=== PATIENT | female | born 1950 | race Caucasian/White ===

== ENCOUNTER 2023-03-11 20:57 | Inpatient (IN) | payer MEDICARE, OTHER ==
[~2023-03-11] VITALS: Ht 167.6 cm; Wt 56.2 kg
[2023-03-11] MEDS ORDERED: CHOL2000 PO (22:17)
[2023-03-11] MEDS ORDERED: estradiol cream VG (22:17)
[2023-03-11] MEDS ORDERED: ASCO500C18 PO (22:17)
[2023-03-11] MEDS ORDERED: BETH10TA2 PO (22:17)
[2023-03-11] MEDS ORDERED: THIA50TA10 PO (22:17)
[2023-03-11] MEDS ORDERED: MULT-594 PO (22:17)
[2023-03-11] MEDS ORDERED: FAMO-132 PO (22:17)
[2023-03-11] MEDS ORDERED: ACET-3117 PO (22:17)
[2023-03-11] MEDS ORDERED: NA P133E RC (22:17)
[2023-03-11] MEDS ORDERED: MAGN400O6 PO (22:17)
[2023-03-11] MEDS ORDERED: MELA3TAB41 PO (22:17)
[2023-03-11] MEDS ORDERED: FOLI1TAB94 PO (22:17)
[2023-03-11] MEDS ORDERED: MAGN400T30 PO (22:17)
[2023-03-11] MEDS ORDERED: CALC300T4 PO (22:17)
[2023-03-11] MEDS ORDERED: METH1TAB PO (22:17)
[2023-03-11 22:54] LABS: CARBON DIOXIDE 24 mmol/L (21-32); CHLORIDE 100 mmol/L (98-107); CREATININE 0.6 mg/dL (0.6-1.3); GLUCOSE 113 mg/dL (74-106); POTASSIUM 3.5 mmol/L (3.5-5.1); SODIUM SERUM 134 mmol/L (136-145); UREA NITROGEN, BLOOD 17 mg/dL (7-18)
[2023-03-11 22:55] LABS: BASOPHILS # (AUTO) 0.1 K/UL (0.0-0.2); EOSINOPHILS # (AUTO) 0.1 K/uL (0.0-0.7); EOSINOPHILS % (AUTO) 1.7 % (0.0-7.0); HEMATOCRIT 38.6 % (31.2-41.9); HEMOGLOBIN 12.7 g/dL (10.9-14.3); LYMPHOCYTES # (AUTO) 1.8 K/uL (0.8-4.8); LYMPHOCYTES % (AUTO) 33.9 % (20.5-51.5); MEAN CORPUSCULAR HEMOGLOBIN 27.7 uug (24.7-32.8); MEAN CORPUSCULAR HGB CONC 33 g/dL (32.3-35.6); MEAN CORPUSCULAR VOLUME 84.1 fL (75.5-95.3); MONOCYTES # (AUTO) 0.4 K/uL (0.1-1.30); MONOCYTES % (AUTO) 8.2 % (0.0-11.0); NEUTROPHILS # (AUTO) 2.9 K/uL (1.8-8.9); NEUTROPHILS % (AUTO) 55.2 % (38.5-71.5); PLATELET COUNT (AUTO) 180 K/uL (179-408); RED BLOOD CELL COUNT(AUTO) 4.59 MIL/uL (3.63-4.92); RED CELL DISTRIBUTION WIDTH 14.4 % (12.3-17.7); WHITE BLOOD COUNT (AUTO) 5.3 K/uL (3.8-11.8)
[2023-03-11 23:00] LABS: ALANINE AMINOTRANSFERASE 23 U/L (14-59); ALBUMIN 3.3 g/dL (3.4-5.0); ALKALINE PHOSPHATASE 65 U/L (50-136); ASPARTATE AMINOTRANSFERASE 18 U/L (15-37); BILIRUBIN,DIRECT 0.1 mg/dL (0.0-0.2); BILIRUBIN,TOTAL 0.4 mg/dL (0.2-1.0); TOTAL PROTEIN, SERUM 6.7 g/dL (6.4-8.2)
[2023-03-11] MEDS ORDERED: MAGNESIUM HYDROXIDE 30 ML LIQUID UDC PO PRN (23:00)
[2023-03-11 23:09] LABS: MAGNESIUM 1.9 mg/dL (1.8-2.4)
[2023-03-11 23:13] LABS: THYROID STIMULATING HORMONE 2.17 mIU/mL (0.358-3.740)
[2023-03-11 23:29] LABS: ETHANOL < 3 MG/DL (0-10)
[2023-03-12 02:55] LABS: *BILIRUBIN,URIN NEGATIVE (NEGATIVE); *BLOOD, URINE 1+ (NEGATIVE); *COLOR,URINE YELLOW (YELLOW); *KETONES,URINE NEGATIVE (NEGATIVE); *PROTEIN,URINE 1+ (NEGATIVE); *UROBILINOGEN,URINE 0.2 E.U./dl (NORMAL); LEUKOCYTE ESTERASE ,URINE 3+ (NEGATIVE); NITRITE, URINE POSITIVE (NEGATIVE); UGLUCOSE NEGATIVE (NEGATIVE)
[2023-03-12 02:57] LABS: *CLARITY,URINE CLOUDY (CLEAR)
[2023-03-12 03:11] LABS: *AMPHETAMINE, URINE NEGATIVE (NEGATIVE); *BARBITURATE, URINE NEGATIVE (NEGATIVE); *BENZODIAZEPINE, URINE NEGATIVE (NEGATIVE); *CANNABINOID, URINE NEGATIVE (NEGATIVE); *COCCAINE, URINE NEGATIVE (NEGATIVE); *OPIATE, URINE NEGATIVE (NEGATIVE); *PHENCYCLIDINE SCREEN,URINE NEGATIVE (NEGATIVE); FENTANYL, URINE NEGATIVE (NEGATIVE)
[2023-03-12 03:26] LABS: BACTERIA,URINE MANY /HPF (NONE SEEN); SQUAMOUS EPITHELIAL CELL,UR FEW /HPF (NONE SEEN); WBC,URINE TNTC /HPF (0-3)
[2023-03-12] MEDS ORDERED: levoFLOXacin 500 MG TABLET PO ONE (03:30)
[2023-03-12 04:00] VITALS: BP 138/67; TEMP 97.8; O2SAT 99
[2023-03-12] MEDS ORDERED: MAGNESIUM HYDROXIDE 30 ML LIQUID UDC PO PRN (04:45)
[2023-03-12] MEDS ORDERED: ZOLPIDEM 5 MG TABLET PO PRN (04:45)
[2023-03-12] MEDS ORDERED: MAG HYDROX/AL HYDROX/SIMETH 30 ML LIQUID UDC PO PRN (04:45)
[2023-03-12] MEDS ORDERED: BLOOD SUGAR DIAGNOSTIC 1 EACH STRIP VI ONE (04:45)
[2023-03-12] MEDS ORDERED: ACETAMINOPHEN 325 MG TABLET PO PRN ×2 (04:45→05:00)
[2023-03-12] MEDS: LORAZEPAM 1 MG TABLET PO PRN ×3 (05:20→20:54)
[2023-03-12 07:30] VITALS: BP 135/72; TEMP 98.2; O2SAT 96
[2023-03-12] MEDS: CHOLECALCIFEROL 1,000 UNIT TABLET PO SCH (08:52)
[2023-03-12] MEDS: MULTIVITAMINS,THERAPEUTIC TABLET PO SCH (08:53)
[2023-03-12] MEDS: BETHANECHOL CHLORIDE 10 MG TABLET PO SCH (08:53)
[2023-03-12] MEDS: MAGNESIUM OXIDE 400 MG TABLET PO SCH (08:53)
[2023-03-12] MEDS: FOLIC ACID 1 MG TABLET PO SCH (08:53)
[2023-03-12] MEDS: FAMOTIDINE 20 MG TABLET PO SCH (08:53)
[2023-03-12] MEDS: ASCORBIC ACID 500 MG TABLET PO SCH (08:53)
[2023-03-12] MEDS: THIAMINE HCL 100 MG TABLET PO SCH (08:53)
[2023-03-12] MEDS ORDERED: METHENAMINE HIPPURATE 1 GM PO SCH (09:00)
[2023-03-12] MEDS: REMEDY ESSENTIAL ZINC PASTE 113 GM TOP SCH ×2 (09:02→20:57)
[2023-03-12] MEDS: QUETIAPINE FUMARATE 25 MG TABLET PO SCH ×2 (10:01→20:56)
[2023-03-12 15:19] VITALS: BP 146/59; TEMP 98; O2SAT 96
[2023-03-12 20:18] VITALS: BP 136/56; TEMP 98.3; O2SAT 98
[2023-03-13] MEDS: MULTIVITAMINS,THERAPEUTIC TABLET PO SCH (08:12)
[2023-03-13] MEDS: ASCORBIC ACID 500 MG TABLET PO SCH (08:12)
[2023-03-13] MEDS: CHOLECALCIFEROL 1,000 UNIT TABLET PO SCH (08:12)
[2023-03-13] MEDS: QUETIAPINE FUMARATE 25 MG TABLET PO SCH ×2 (08:12→21:08)
[2023-03-13] MEDS: THIAMINE HCL 100 MG TABLET PO SCH (08:12)
[2023-03-13] MEDS: BETHANECHOL CHLORIDE 10 MG TABLET PO SCH (08:13)
[2023-03-13] MEDS: FOLIC ACID 1 MG TABLET PO SCH (08:13)
[2023-03-13] MEDS: GLUCERNA SHAKE 237 ML CAN PO SCH (08:13)
[2023-03-13] MEDS: FAMOTIDINE 20 MG TABLET PO SCH (08:13)
[2023-03-13] MEDS: MAGNESIUM OXIDE 400 MG TABLET PO SCH (08:13)
[2023-03-13] MEDS: REMEDY ESSENTIAL ZINC PASTE 113 GM TOP SCH ×2 (08:14→21:08)
[2023-03-13 10:18] VITALS: BP 141/64; TEMP 98; O2SAT 99
[2023-03-13] MEDS: LORAZEPAM 1 MG TABLET PO PRN (11:23)
[2023-03-13 19:55] VITALS: BP 142/66; TEMP 98.1; O2SAT 98
[2023-03-13] MEDS ORDERED: ATORVASTATIN 20 MG TABLET PO SCH (21:00)
[2023-03-14] MEDS: LORAZEPAM 1 MG TABLET PO PRN ×2 (06:37→14:01)
[2023-03-14] MEDS: MULTIVITAMINS,THERAPEUTIC TABLET PO SCH (08:30)
[2023-03-14] MEDS: BETHANECHOL CHLORIDE 10 MG TABLET PO SCH (08:30)
[2023-03-14] MEDS: FAMOTIDINE 20 MG TABLET PO SCH (08:30)
[2023-03-14] MEDS: THIAMINE HCL 100 MG TABLET PO SCH (08:31)
[2023-03-14] MEDS: MAGNESIUM OXIDE 400 MG TABLET PO SCH (08:31)
[2023-03-14] MEDS: FOLIC ACID 1 MG TABLET PO SCH (08:31)
[2023-03-14] MEDS: QUETIAPINE FUMARATE 25 MG TABLET PO SCH (08:32)
[2023-03-14] MEDS: CHOLECALCIFEROL 1,000 UNIT TABLET PO SCH (08:32)
[2023-03-14] MEDS: ASCORBIC ACID 500 MG TABLET PO SCH (08:32)
[2023-03-14] MEDS: GLUCERNA SHAKE 237 ML CAN PO SCH (08:32)
[2023-03-14] MEDS: REMEDY ESSENTIAL ZINC PASTE 113 GM TOP SCH (08:33)
[2023-03-14 16:46] VITALS: BP 136/74; TEMP 97.9; O2SAT 97
[2023-03-14] MEDS ORDERED: LORA0.5T48 PO (18:41)
[2023-03-14] MEDS ORDERED: ZINC113P3 TP (18:41)
[2023-03-14] MEDS ORDERED: QUET25TA PO ×2 (18:41)
[2023-03-14] MEDS ORDERED: MAG-55 PO (18:41)
[2023-03-14] MEDS ORDERED: NUT.237L36 PO (18:41)
[2023-03-14] MEDS ORDERED: ATOR20TA PO (18:41)
== END 2023-03-14 16:45 | disposition short-term general hospital (02) | DRG 885 ==
LOC: ER 20:59 → GPS 03-12 01:00
PROVIDERS: ADMIT Psychiatry & Neurology Psychiatry; ATTEND Internal Medicine
DX: F29 Unspecified psychosis not due to a substance or known physiological condition (principal); B18.2 Chronic viral hepatitis C; N39.0 Urinary tract infection, site not specified; F10.27 Alcohol dependence with alcohol-induced persisting dementia; E44.0 Moderate protein-calorie malnutrition; F03.92 Unspecified dementia, unspecified severity, with psychotic disturbance; K70.30 Alcoholic cirrhosis of liver without ascites; Z91.81 History of falling; R26.81 Unsteadiness on feet; R33.9 Retention of urine, unspecified; J44.9 Chronic obstructive pulmonary disease, unspecified; K64.5 Perianal venous thrombosis; I10 Essential (primary) hypertension; I25.10 Atherosclerotic heart disease of native coronary artery without angina pectoris; Z87.891 Personal history of nicotine dependence; Z86.16 Personal history of COVID-19; G93.89 Other specified disorders of brain
CPT/HCPCS: 36415; 70450; 82747; 83735; 83921; 84443; 85014; 85025; A4663; G0480

== ENCOUNTER 2023-03-14 17:28 | Inpatient (IN) | payer MEDICARE, OTHER ==
[~2023-03-14] VITALS: Ht 167.6 cm; Wt 55.1 kg
[~2023-03-14 17:28] MED LIST: ACET-3117 PO; ASCO500C18 PO; BETH10TA2 PO; CALC300T4 PO; CHOL2000 PO; FAMO-132 PO; FOLI1TAB94 PO; MAGN400O6 PO; MAGN400T30 PO; METH1TAB PO; MULT-594 PO; NA P133E RC; THIA50TA10 PO; estradiol cream VG
[2023-03-14 18:26] VITALS: BP 132/69; TEMP 97.9; O2SAT 97
[2023-03-14] MEDS ORDERED: NUT.237L36 PO (18:41)
[2023-03-14] MEDS ORDERED: ZINC113P3 TP (18:41)
[2023-03-14] MEDS ORDERED: QUET25TA PO ×2 (18:41)
[2023-03-14] MEDS ORDERED: ATOR20TA PO (18:41)
[2023-03-14] MEDS ORDERED: MAG-55 PO (18:41)
[2023-03-14] MEDS ORDERED: LORA0.5T48 PO (18:41)
[2023-03-14] MEDS ORDERED: FLEET ENEMA 133 ML BOTTLE RC PRN (19:00)
[2023-03-14] MEDS ORDERED: MAGNESIUM HYDROXIDE 30 ML LIQUID UDC PO PRN (19:00)
[2023-03-14] MEDS ORDERED: CALCIUM CARBONATE 500 MG TAB.CHEW PO PRN (19:45)
[2023-03-14 20:00] VITALS: BP 151/95; TEMP 98.3; O2SAT 99
[2023-03-14] MEDS: ATORVASTATIN 20 MG TABLET PO SCH (22:05)
[2023-03-14] MEDS: QUETIAPINE FUMARATE 25 MG TABLET PO SCH (22:05)
[2023-03-14] MEDS: IV D5 1/2 NS 1000 ML 1,000 ML IV PRN (22:24)
[2023-03-14] MEDS: CEFTRIAXONE 1 G in IV DEXTROSE 5% 50 ML IV SCH (23:24)
[2023-03-15] MEDS: LORAZEPAM 0.5 MG TABLET PO PRN ×3 (02:28→14:57)
[2023-03-15 04:00] VITALS: BP 152/96; TEMP 98; O2SAT 96
[2023-03-15 07:06] LABS: BASOPHILS % (AUTO) 0.4 % (0.0-2.0); EOSINOPHILS # (AUTO) 0.2 K/uL (0.0-0.7); EOSINOPHILS % (AUTO) 1.6 % (0.0-7.0); HEMATOCRIT 44.5 % (31.2-41.9); HEMOGLOBIN 14.9 g/dL (10.9-14.3); LYMPHOCYTES # (AUTO) 1.8 K/uL (0.8-4.8); LYMPHOCYTES % (AUTO) 18.8 % (20.5-51.5); MEAN CORPUSCULAR HEMOGLOBIN 28.5 uug (24.7-32.8); MEAN CORPUSCULAR HGB CONC 34 g/dL (32.3-35.6); MEAN CORPUSCULAR VOLUME 84.7 fL (75.5-95.3); MONOCYTES # (AUTO) 0.5 K/uL (0.1-1.30); MONOCYTES % (AUTO) 5.2 % (0.0-11.0); NEUTROPHILS # (AUTO) 7.2 K/uL (1.8-8.9); PLATELET COUNT (AUTO) 187 K/uL (179-408); RED BLOOD CELL COUNT(AUTO) 5.25 MIL/uL (3.63-4.92); RED CELL DISTRIBUTION WIDTH 14.3 % (12.3-17.7); WHITE BLOOD COUNT (AUTO) 9.7 K/uL (3.8-11.8)
[2023-03-15 07:36] LABS: DIFFERENTIAL COMMENT 1
[2023-03-15 07:42] LABS: AMMONIA < 10 umol/L (11-32)
[2023-03-15 08:09] LABS: ALANINE AMINOTRANSFERASE 35 U/L (14-59); ALKALINE PHOSPHATASE 71 U/L (50-136); ASPARTATE AMINOTRANSFERASE 26 U/L (15-37); BILIRUBIN,TOTAL 0.7 mg/dL (0.2-1.0); CALCIUM 9.5 mg/dL (8.5-10.1); CARBON DIOXIDE 28 mmol/L (21-32); CHLORIDE 96 mmol/L (98-107); CREATININE 0.8 mg/dL (0.6-1.3); GLUCOSE 120 mg/dL (74-106); MAGNESIUM 1.8 mg/dL (1.8-2.4); NT-PRO BNP 320 pg/mL (0-125); PHOSPHOROUS 3.4 mg/dL (2.5-4.9); POTASSIUM 3.3 mmol/L (3.5-5.1); SODIUM SERUM 129 mmol/L (136-145); TOTAL PROTEIN, SERUM 8.1 g/dL (6.4-8.2); UREA NITROGEN, BLOOD 12 mg/dL (7-18)
[2023-03-15] MEDS ORDERED: METHENAMINE HIPPURATE 1 GM PO SCH (09:00)
[2023-03-15] MEDS ORDERED: PANTOPRAZOLE SODIUM 40 MG VIAL IV SCH (09:00)
[2023-03-15] MEDS ORDERED: FAMOTIDINE 20 MG TABLET PO SCH (09:00)
[2023-03-15] MEDS ORDERED: POTASSIUM CHLORIDE 20 MEQ TAB.PRT.SR PO ONE (09:00)
[2023-03-15] MEDS: MAGNESIUM OXIDE 400 MG TABLET PO SCH (09:23)
[2023-03-15] MEDS: THIAMINE HCL 100 MG TABLET PO SCH (09:24)
[2023-03-15] MEDS: MULTIVITAMINS,THERAPEUTIC TABLET PO SCH (09:24)
[2023-03-15] MEDS: CHOLECALCIFEROL 1,000 UNIT TABLET PO SCH (09:25)
[2023-03-15] MEDS: QUETIAPINE FUMARATE 25 MG TABLET PO SCH ×2 (09:25→21:13)
[2023-03-15] MEDS: FOLIC ACID 1 MG TABLET PO SCH (09:27)
[2023-03-15] MEDS: GLUCERNA 1.2 1000ML LIQUID PO SCH (09:28)
[2023-03-15] MEDS: ASCORBIC ACID 500 MG TABLET PO SCH (09:30)
[2023-03-15] MEDS: BETHANECHOL CHLORIDE 10 MG TABLET PO SCH (09:34)
[2023-03-15 11:48] VITALS: BP 138/11; TEMP 97.8; O2SAT 97
[2023-03-15 11:55] VITALS: BP 138/111
[2023-03-15] MEDS: IV D5 1/2 NS 1000 ML 1,000 ML IV PRN (12:13)
[2023-03-15 17:22] VITALS: BP 138/111
[2023-03-15 20:01] VITALS: BP 131/71; TEMP 98.8; O2SAT 97
[2023-03-15] MEDS: ATORVASTATIN 20 MG TABLET PO SCH (21:14)
[2023-03-15] MEDS: CEFTRIAXONE 1 G in IV DEXTROSE 5% 50 ML IV SCH (21:15)
[2023-03-15] MEDS: REMEDY ESSENTIAL ZINC PASTE 113 GM TOP SCH (21:17)
[2023-03-16 00:21] VITALS: BP 116/73; TEMP 97.6; O2SAT 97
[2023-03-16] MEDS: IV D5 1/2 NS 1000 ML 1,000 ML IV PRN ×2 (03:36→20:18)
[2023-03-16 04:26] VITALS: BP 143/69; TEMP 97.6; O2SAT 96
[2023-03-16 08:44] LABS: BASOPHILS # (AUTO) 0.1 K/UL (0.0-0.2); BASOPHILS % (AUTO) 0.8 % (0.0-2.0); DIFFERENTIAL COMMENT 0; EOSINOPHILS # (AUTO) 0.3 K/uL (0.0-0.7); EOSINOPHILS % (AUTO) 3.3 % (0.0-7.0); HEMATOCRIT 41.8 % (31.2-41.9); LYMPHOCYTES % (AUTO) 24.8 % (20.5-51.5); MEAN CORPUSCULAR HEMOGLOBIN 28.2 uug (24.7-32.8); MEAN CORPUSCULAR HGB CONC 33 g/dL (32.3-35.6); MEAN CORPUSCULAR VOLUME 84.5 fL (75.5-95.3); MONOCYTES # (AUTO) 0.4 K/uL (0.1-1.30); MONOCYTES % (AUTO) 5.3 % (0.0-11.0); NEUTROPHILS # (AUTO) 5.3 K/uL (1.8-8.9); NEUTROPHILS % (AUTO) 65.8 % (38.5-71.5); PLATELET COUNT (AUTO) 163 K/uL (179-408); RED BLOOD CELL COUNT(AUTO) 4.95 MIL/uL (3.63-4.92); RED CELL DISTRIBUTION WIDTH 14.5 % (12.3-17.7)
[2023-03-16] MEDS: MULTIVITAMINS,THERAPEUTIC TABLET PO SCH (08:50)
[2023-03-16] MEDS: MAGNESIUM OXIDE 400 MG TABLET PO SCH (08:50)
[2023-03-16] MEDS: QUETIAPINE FUMARATE 25 MG TABLET PO SCH ×2 (08:50→20:18)
[2023-03-16] MEDS: PANTOPRAZOLE ORAL SUSPENSION 40 MG SUSPDR.PKT PO SCH (08:50)
[2023-03-16] MEDS: FOLIC ACID 1 MG TABLET PO SCH (08:50)
[2023-03-16] MEDS: ASCORBIC ACID 500 MG TABLET PO SCH (08:51)
[2023-03-16] MEDS: BETHANECHOL CHLORIDE 10 MG TABLET PO SCH (08:51)
[2023-03-16] MEDS: THIAMINE HCL 100 MG TABLET PO SCH (08:51)
[2023-03-16] MEDS: CHOLECALCIFEROL 1,000 UNIT TABLET PO SCH (08:52)
[2023-03-16] MEDS: REMEDY ESSENTIAL ZINC PASTE 113 GM TOP SCH ×2 (08:53→20:19)
[2023-03-16] MEDS: GLUCERNA 1.2 1000ML LIQUID PO SCH (08:53)
[2023-03-16 09:07] LABS: CALCIUM 8.8 mg/dL (8.5-10.1); CARBON DIOXIDE 26 mmol/L (21-32); CHLORIDE 102 mmol/L (98-107); CREATININE 0.8 mg/dL (0.6-1.3); GLUCOSE 112 mg/dL (74-106); MAGNESIUM 1.6 mg/dL (1.8-2.4); PHOSPHOROUS 3.3 mg/dL (2.5-4.9); POTASSIUM 3.3 mmol/L (3.5-5.1); SODIUM SERUM 136 mmol/L (136-145); UREA NITROGEN, BLOOD 8 mg/dL (7-18)
[2023-03-16] MEDS: MAGNESIUM SULFATE/D5W 100 ML IV SCH ×2 (11:15→12:22)
[2023-03-16 11:44] VITALS: BP 90/53; TEMP 97.8; O2SAT 99
[2023-03-16 16:10] VITALS: BP 110/63; TEMP 97.8; O2SAT 99
[2023-03-16] MEDS: LORAZEPAM 1 MG TABLET PO PRN ×2 (17:48→23:53)
[2023-03-16] MEDS: ATORVASTATIN 20 MG TABLET PO SCH (20:18)
[2023-03-16] MEDS: CEFTRIAXONE 1 G in IV DEXTROSE 5% 50 ML IV SCH (20:19)
[2023-03-16 21:50] VITALS: BP 115/57; TEMP 98.6
[2023-03-17 00:56] LABS: *BILIRUBIN,URIN NEGATIVE (NEGATIVE); *CLARITY,URINE CLEAR (CLEAR); *COLOR,URINE YELLOW (YELLOW); *KETONES,URINE NEGATIVE (NEGATIVE); *PROTEIN,URINE NEGATIVE (NEGATIVE); *UROBILINOGEN,URINE 0.2 E.U./dl (NORMAL); LEUKOCYTE ESTERASE ,URINE TRACE (NEGATIVE); NITRITE, URINE NEGATIVE (NEGATIVE); UGLUCOSE NEGATIVE (NEGATIVE)
[2023-03-17 01:17] LABS: *BLOOD, URINE TRACE (NEGATIVE)
[2023-03-17 01:21] LABS: BACTERIA,URINE FEW /HPF (NONE SEEN); SQUAMOUS EPITHELIAL CELL,UR FEW /HPF (NONE SEEN)
[2023-03-17] MEDS: PANTOPRAZOLE ORAL SUSPENSION 40 MG SUSPDR.PKT PO SCH (06:03)
[2023-03-17 08:20] LABS: BASOPHILS # (AUTO) 0.1 K/UL (0.0-0.2); BASOPHILS % (AUTO) 1.4 % (0.0-2.0); EOSINOPHILS # (AUTO) 0.3 K/uL (0.0-0.7); HEMOGLOBIN 12.9 g/dL (10.9-14.3); LYMPHOCYTES # (AUTO) 1.7 K/uL (0.8-4.8); LYMPHOCYTES % (AUTO) 25.5 % (20.5-51.5); MEAN CORPUSCULAR HEMOGLOBIN 28.3 uug (24.7-32.8); MEAN CORPUSCULAR HGB CONC 34 g/dL (32.3-35.6); MEAN CORPUSCULAR VOLUME 83.1 fL (75.5-95.3); MONOCYTES # (AUTO) 0.5 K/uL (0.1-1.30); MONOCYTES % (AUTO) 7.7 % (0.0-11.0); NEUTROPHILS % (AUTO) 61.4 % (38.5-71.5); PLATELET COUNT (AUTO) 156 K/uL (179-408); RED BLOOD CELL COUNT(AUTO) 4.58 MIL/uL (3.63-4.92); RED CELL DISTRIBUTION WIDTH 14.2 % (12.3-17.7); WHITE BLOOD COUNT (AUTO) 6.6 K/uL (3.8-11.8)
[2023-03-17 08:30] LABS: DIFFERENTIAL COMMENT 1
[2023-03-17 08:51] LABS: CALCIUM 8.6 mg/dL (8.5-10.1); CARBON DIOXIDE 23 mmol/L (21-32); CHLORIDE 103 mmol/L (98-107); CREATININE 0.7 mg/dL (0.6-1.3); GLUCOSE 106 mg/dL (74-106); MAGNESIUM 1.7 mg/dL (1.8-2.4); PHOSPHOROUS 3.2 mg/dL (2.5-4.9); POTASSIUM 3.3 mmol/L (3.5-5.1); SODIUM SERUM 133 mmol/L (136-145); UREA NITROGEN, BLOOD 9 mg/dL (7-18)
[2023-03-17] MEDS: QUETIAPINE FUMARATE 25 MG TABLET PO SCH ×2 (08:59→20:13)
[2023-03-17] MEDS: FOLIC ACID 1 MG TABLET PO SCH (08:59)
[2023-03-17] MEDS: MULTIVITAMINS,THERAPEUTIC TABLET PO SCH (09:00)
[2023-03-17] MEDS: THIAMINE HCL 100 MG TABLET PO SCH (09:00)
[2023-03-17] MEDS: MAGNESIUM OXIDE 400 MG TABLET PO SCH (09:00)
[2023-03-17] MEDS: ASCORBIC ACID 500 MG TABLET PO SCH (09:00)
[2023-03-17] MEDS: CHOLECALCIFEROL 1,000 UNIT TABLET PO SCH (09:00)
[2023-03-17] MEDS: BETHANECHOL CHLORIDE 10 MG TABLET PO SCH (09:00)
[2023-03-17] MEDS: REMEDY ESSENTIAL ZINC PASTE 113 GM TOP SCH ×2 (09:01→20:14)
[2023-03-17] MEDS: GLUCERNA 1.2 1000ML LIQUID PO SCH (09:02)
[2023-03-17] MEDS ORDERED: POTASSIUM CHLORIDE 20 MEQ TAB.PRT.SR PO ONE (10:15)
[2023-03-17] MEDS ORDERED: MAGNESIUM OXIDE 400 MG TABLET PO ONE (10:15)
[2023-03-17 12:02] VITALS: BP 115/62; TEMP 98; O2SAT 98
[2023-03-17] MEDS: IV D5 1/2 NS 1000 ML 1,000 ML IV PRN (12:21)
[2023-03-17] MEDS: ENSURE ENLIVE (VAN) 240 ML LIQUID PO SCH ×2 (12:22→17:00)
[2023-03-17] MEDS: LORAZEPAM 1 MG TABLET PO PRN ×2 (15:00→23:17)
[2023-03-17 16:00] VITALS: BP 133/80; TEMP 98.3; O2SAT 99
[2023-03-17] MEDS: CEFTRIAXONE 1 G in IV DEXTROSE 5% 50 ML IV SCH (20:12)
[2023-03-17] MEDS: ATORVASTATIN 20 MG TABLET PO SCH (20:13)
[2023-03-18] MEDS: ACETAMINOPHEN 325 MG TABLET PO PRN (00:27)
[2023-03-18] MEDS: IV NS 1000 ML 1,000 ML IV PRN ×2 (00:34→20:30)
[2023-03-18] MEDS: PANTOPRAZOLE ORAL SUSPENSION 40 MG SUSPDR.PKT PO SCH (05:48)
[2023-03-18 08:15] LABS: CALCIUM 8.9 mg/dL (8.5-10.1); CARBON DIOXIDE 25 mmol/L (21-32); CHLORIDE 99 mmol/L (98-107); CREATININE 0.6 mg/dL (0.6-1.3); GLUCOSE 115 mg/dL (74-106); MAGNESIUM 1.7 mg/dL (1.8-2.4); POTASSIUM 3.3 mmol/L (3.5-5.1); SODIUM SERUM 131 mmol/L (136-145); UREA NITROGEN, BLOOD 6 mg/dL (7-18)
[2023-03-18] MEDS: ASCORBIC ACID 500 MG TABLET PO SCH (08:47)
[2023-03-18] MEDS: BETHANECHOL CHLORIDE 10 MG TABLET PO SCH (08:47)
[2023-03-18] MEDS: FOLIC ACID 1 MG TABLET PO SCH (08:47)
[2023-03-18] MEDS: THIAMINE HCL 100 MG TABLET PO SCH (08:47)
[2023-03-18] MEDS: ENSURE ENLIVE (VAN) 240 ML LIQUID PO SCH ×3 (08:48→17:35)
[2023-03-18] MEDS: QUETIAPINE FUMARATE 25 MG TABLET PO SCH ×2 (08:48→21:00)
[2023-03-18] MEDS: MULTIVITAMINS,THERAPEUTIC TABLET PO SCH (08:48)
[2023-03-18] MEDS: MAGNESIUM OXIDE 400 MG TABLET PO SCH (08:48)
[2023-03-18] MEDS: CHOLECALCIFEROL 1,000 UNIT TABLET PO SCH (08:48)
[2023-03-18] MEDS: REMEDY ESSENTIAL ZINC PASTE 113 GM TOP SCH ×2 (08:49→21:36)
[2023-03-18 11:55] VITALS: BP 106/71; TEMP 98.2; O2SAT 98
[2023-03-18] MEDS ORDERED: MAGNESIUM OXIDE 400 MG TABLET PO ONE (12:00)
[2023-03-18] MEDS ORDERED: POTASSIUM CHLORIDE 20 MEQ TAB.PRT.SR PO ONE (12:00)
[2023-03-18 16:13] VITALS: BP 111/63; TEMP 98.3; O2SAT 98
[2023-03-18 20:00] VITALS: BP 103/58; TEMP 98.2; O2SAT 96
[2023-03-18] MEDS: LORAZEPAM 1 MG TABLET PO PRN (20:04)
[2023-03-18] MEDS: CEFTRIAXONE 1 G in IV DEXTROSE 5% 50 ML IV SCH (21:03)
[2023-03-18] MEDS: ATORVASTATIN 20 MG TABLET PO SCH (21:03)
[2023-03-19] VITALS: BP 150/88; TEMP 98; O2SAT 97
[2023-03-19 04:00] VITALS: BP 128/79; TEMP 98.3; O2SAT 97
[2023-03-19] MEDS: LORAZEPAM 1 MG TABLET PO PRN ×2 (05:42→14:09)
[2023-03-19] MEDS: PANTOPRAZOLE ORAL SUSPENSION 40 MG SUSPDR.PKT PO SCH (06:25)
[2023-03-19 08:12] LABS: CALCIUM 8.4 mg/dL (8.5-10.1); CARBON DIOXIDE 24 mmol/L (21-32); CHLORIDE 103 mmol/L (98-107); CREATININE 0.5 mg/dL (0.6-1.3); GLUCOSE 96 mg/dL (74-106); MAGNESIUM 1.7 mg/dL (1.8-2.4); POTASSIUM 3.6 mmol/L (3.5-5.1); SODIUM SERUM 136 mmol/L (136-145); UREA NITROGEN, BLOOD 9 mg/dL (7-18)
[2023-03-19] MEDS: ASCORBIC ACID 500 MG TABLET PO SCH (09:31)
[2023-03-19] MEDS: FOLIC ACID 1 MG TABLET PO SCH (09:32)
[2023-03-19] MEDS: THIAMINE HCL 100 MG TABLET PO SCH (09:32)
[2023-03-19] MEDS: MULTIVITAMINS,THERAPEUTIC TABLET PO SCH (09:32)
[2023-03-19] MEDS: CHOLECALCIFEROL 1,000 UNIT TABLET PO SCH (09:32)
[2023-03-19] MEDS: QUETIAPINE FUMARATE 25 MG TABLET PO SCH ×2 (09:32→20:40)
[2023-03-19] MEDS: MAGNESIUM OXIDE 400 MG TABLET PO SCH (09:32)
[2023-03-19] MEDS: ENSURE ENLIVE (VAN) 240 ML LIQUID PO SCH ×3 (09:33→17:33)
[2023-03-19] MEDS: REMEDY ESSENTIAL ZINC PASTE 113 GM TOP SCH (09:33)
[2023-03-19] MEDS: BETHANECHOL CHLORIDE 10 MG TABLET PO SCH (09:33)
[2023-03-19] MEDS ORDERED: MAGNESIUM OXIDE 400 MG TABLET PO SCH (09:45)
[2023-03-19] MEDS ORDERED: MAGNESIUM OXIDE 400 MG TABLET PO ONE (10:45)
[2023-03-19] MEDS: IV NS 1000 ML 1,000 ML IV PRN (15:38)
[2023-03-19 16:13] VITALS: BP 111/53; TEMP 98.2; O2SAT 97
[2023-03-19 20:00] VITALS: BP 116/58; TEMP 98; O2SAT 99
[2023-03-19] MEDS: CEFTRIAXONE 1 G in IV DEXTROSE 5% 50 ML IV SCH (20:40)
[2023-03-19] MEDS: ATORVASTATIN 20 MG TABLET PO SCH (20:40)
[2023-03-20] MEDS: REMEDY ESSENTIAL ZINC PASTE 113 GM TOP SCH ×2 (03:08→09:31)
[2023-03-20] MEDS: ACETAMINOPHEN 325 MG TABLET PO PRN (04:07)
[2023-03-20] MEDS: LORAZEPAM 1 MG TABLET PO PRN (04:07)
[2023-03-20 04:40] VITALS: BP 139/68; TEMP 98; O2SAT 99
[2023-03-20] MEDS: PANTOPRAZOLE ORAL SUSPENSION 40 MG SUSPDR.PKT PO SCH (06:15)
[2023-03-20] MEDS: ASCORBIC ACID 500 MG TABLET PO SCH (09:26)
[2023-03-20] MEDS: MAGNESIUM OXIDE 400 MG TABLET PO SCH (09:26)
[2023-03-20] MEDS: THIAMINE HCL 100 MG TABLET PO SCH (09:26)
[2023-03-20] MEDS: QUETIAPINE FUMARATE 25 MG TABLET PO SCH (09:26)
[2023-03-20] MEDS: FOLIC ACID 1 MG TABLET PO SCH (09:26)
[2023-03-20] MEDS: ENSURE ENLIVE (VAN) 240 ML LIQUID PO SCH ×2 (09:27→13:45)
[2023-03-20] MEDS: CHOLECALCIFEROL 1,000 UNIT TABLET PO SCH (09:27)
[2023-03-20] MEDS: MULTIVITAMINS,THERAPEUTIC TABLET PO SCH (09:27)
[2023-03-20] MEDS: BETHANECHOL CHLORIDE 10 MG TABLET PO SCH (09:30)
[2023-03-20 11:44] VITALS: BP 123/68; TEMP 97.2; O2SAT 96
== END 2023-03-20 16:00 | DRG 689 ==
LOC: MEDSURG3 17:28 → TELE3 03-15 07:48 → MEDSURG3 03-20 08:05
PROVIDERS: ADMIT Internal Medicine; ATTEND Internal Medicine
PROC: 05HB33Z Insertion of Infusion Device into Right Basilic Vein, Percutaneous Approach (ICD-10-PCS; principal; 2023-03-15)
DX: N39.0 Urinary tract infection, site not specified (principal); G92.8 Other toxic encephalopathy; E44.0 Moderate protein-calorie malnutrition; E87.1 Hypo-osmolality and hyponatremia; G91.2 (Idiopathic) normal pressure hydrocephalus; E87.6 Hypokalemia; B96.89 Other specified bacterial agents as the cause of diseases classified elsewhere; E78.5 Hyperlipidemia, unspecified; R26.81 Unsteadiness on feet; Z91.81 History of falling; J44.9 Chronic obstructive pulmonary disease, unspecified; Z87.891 Personal history of nicotine dependence; Z88.0 Allergy status to penicillin; Z86.19 Personal history of other infectious and parasitic diseases; K70.30 Alcoholic cirrhosis of liver without ascites; I10 Essential (primary) hypertension; R09.89 Other specified symptoms and signs involving the circulatory and respiratory systems; I25.10 Atherosclerotic heart disease of native coronary artery without angina pectoris; F03.90 Unspecified dementia, unspecified severity, without behavioral disturbance, psychotic disturbance, mood disturbance, and anxiety; Z78.1 Physical restraint status; E83.42 Hypomagnesemia
CPT/HCPCS: 36415; 71045; 83735; 84100; 84484; 85025; 86803; 93005; A6213; C9113; G0378; J0696; J3475; J7040